=== PATIENT | female | born 1960 | race Caucasian/White ===

== ENCOUNTER 2019-06-19 05:58 | Day surgery (SDC) | payer OTHER ==
[~2019-06-19] VITALS: Ht 152.4 cm; Wt 74.8 kg
[~2019-06-19 05:58] MED LIST: GLU500 PO
[2019-06-19] MEDS ORDERED: LIDOCAINE 2% 100 MG/5 ML UJET TP ONE (08:13)
[2019-06-19] MEDS ORDERED: fentaNYL 0.05 MG/ML VIAL ONE (08:13)
[2019-06-19] MEDS ORDERED: MIDAZOLAM 2 MG/2 ML VIAL ONE (08:13)
[2019-06-19] MEDS ORDERED: MIDAZOLAM 2 MG/2 ML VIAL IV ONE (08:30)
[2019-06-19] MEDS ORDERED: fentaNYL 0.05 MG/ML VIAL IVP ONE (08:32)
== END 2019-06-19 10:10 | disposition home or self-care (01) ==
LOC: MOR 05:58 → MMU 06:13 → MOR 10:10
PROVIDERS: ATTEND Internal Medicine Gastroenterology
DX: Z12.11 Encounter for screening for malignant neoplasm of colon (principal); D12.3 Benign neoplasm of transverse colon; D12.5 Benign neoplasm of sigmoid colon; K29.70 Gastritis, unspecified, without bleeding; B96.81 Helicobacter pylori [H. pylori] as the cause of diseases classified elsewhere; K20.9 Esophagitis, unspecified
CPT/HCPCS: 36415; 43239; 45385; 86677; J2250; J3010; 88305